=== PATIENT | female | born 1935 | race Caucasian/White ===

== ENCOUNTER → 2018-02-14 | Outpatient (CLI) | payer MEDICARE ==
[~2018-02-14] MED LIST: AMIO200T42 PO; APIX5TAB PO; ATEN25TA PO; ATEN50TA41 PO; ATEN5POW; CELE-47 PO; FLUO20CA8 PO; FURO20TA3 PO; GABA300C10 PO; LEVO100C2; LEVO50TA5 PO; LISI5TAB7 PO; LOVA-39; METF500T4 PO; OXYC-302 PO; OXYC1TAB7 PO; POTA10TA PO; POTA99TA24; ROSU20TA PO
== END | disposition home or self-care (01) ==
LOC: CFH 10:12
PROVIDERS: ATTEND Family Medicine
DX: M85.88 Other specified disorders of bone density and structure, other site (principal)
CPT/HCPCS: 77080